=== PATIENT | female | born 1980 | race Asian ===

== ENCOUNTER 2024-08-16 11:30 | Emergency (ER) | payer OTHER ==
[~2024-08-16] VITALS: Ht 157.5 cm; Wt 147.4 kg
[2024-08-16] MEDS ORDERED: diphenhydrAMINE HCL ELIX 25 MG/10 ML UDC ONE (12:44)
[2024-08-16] MEDS ORDERED: FAMOTIDINE (20 MG) 20 MG TABLET ONE (12:45)
[2024-08-16] MEDS ORDERED: predniSONE 20 MG TABLET ONE (12:45)
[2024-08-16] MEDS: DIPHENHYDRAMINE HCL 12.5 MG/5 ML UDC PO ONE (12:52)
[2024-08-16] MEDS: FAMOTIDINE (20 MG) 20 MG TABLET PO ONE (12:53)
[2024-08-16] MEDS: predniSONE 50 MG TABLET PO ONE (12:53)
[2024-08-16] MEDS ORDERED: EPIN0.3P3 IM (13:10)
[2024-08-16] MEDS ORDERED: PRED50TA PO (13:10)
[2024-08-16 13:50] VITALS: BP 141/87; TEMP 98.5; O2SAT 99
== END 2024-08-16 13:50 | disposition home or self-care (01) ==
LOC: ER 11:35
DX: T78.40XA Allergy, unspecified, initial encounter (principal); I10 Essential (primary) hypertension; X58.XXXA Exposure to other specified factors, initial encounter
CPT/HCPCS: 99284; Q0163 ×2; J7512